=== PATIENT | male | born 1960 | race Asian ===

== ENCOUNTER → 2024-06-01 | Outpatient (CLI) | payer OTHER, SELFPAY ==
[2024-06-01 11:01] LABS: Prostate Specific Antigen 5.32 ng/mL (0-4.00)
== END | disposition home or self-care (01) ==
LOC: COPL 09:40
PROVIDERS: PCP Internal Medicine; Referring Provider Surgery; Visit Provider Surgery
DX: Z01.89 Encounter for other specified special examinations (principal)
CPT/HCPCS: 36415; 84153

== ENCOUNTER 2024-07-21 07:35 | Day surgery (SDC) | payer OTHER, SELFPAY ==
--- NOTE | 2024-07-19 06:41 | EKG_ITS ---
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
[2024-07-19 10:04] VITALS: BMI 28.5
[2024-07-19 10:29] LABS: Collection Type, Urine Clean Catch; Squamous Epithelial Cell,Urine 0 /hpf (0-5)
[2024-07-19 11:15] LABS: Bilirubin,Urine Negative (Negative); Blood,Urine Negative (Negative); Clarity,Urine Clear (Clear/Hazy); Color,Urine Colorless (Lt Yel-Yel); Glucose, Urine Negative (Negative); Ketones,Urine Negative (Negative); Leukocyte Esterase,Urine Negative (Negative); Nitrite,Urine Negative (Negative); Protein,Urine Negative (Neg - Trace); RBC,Urine < 1 /hpf (0-3); Specific Gravity,Urine 1.007 (1.001-1.035); Urobilinogen,Urine Negative mg/dL (0.0-1.0); WBC,Urine < 1 /hpf (0-5)
[2024-07-19 11:18] LABS: Alanine Aminotransferase 28 U/L (10-49); Albumin, Serum 4.8 gm/dL (3.4-4.8); Albumin/Globulin Ratio 1.5 (1.2-2.2); Alkaline Phosphatase 50 U/L (46-116); Anion Gap 8 (7-16); Aspartate Amino Transferase 21 U/L (0-34); BUN/Creatinine Ratio 13 Ratio (12-20); Bilirubin,Total 0.4 mg/dL (0.3-1.2); Blood Urea Nitrogen 15 mg/dL (9-23); Calcium 9.7 mg/dL (8.3-10.6); Calcium (Corrected) 9.7 mg/dL (8.5-10.1); Carbon Dioxide 28.1 mMol/L (20.0-31.0); Chloride 100 mMol/L (98-107); Creatinine (Component) 1.2 mg/dL (0.6-1.3); Estimated Creatinine Clearance 58.3 mL/min (>60); Globulin 3.1 gm/dL (2.3-3.5); Glucose 134 mg/dL (74-106); Osmolality,Calculated 274 (275-295); Potassium 3.6 mMol/L (3.4-5.1); Sodium 136 mMol/L (136-145); Total Protein 7.9 gm/dL (5.7-8.2); eGFR > 60 See Note
[2024-07-19 11:35] LABS: Basophils # (Auto) 0.1 Thou/mm3 (0.0-0.2); Basophils % (Auto) 2 % (0-2.5); Eosinophils # (Auto) 0.4 Thou/mm3 (0.0-0.5); Eosinophils % (Auto) 6 % (0-10); Hematocrit 45.7 % (41.0-53.0); Immature Granulocytes % (Auto) 0 % (0-0); Immature Granulocytes Auto 0.02 Thou/mm3 (0.00-0.00); Lymphocytes # (Auto) 1.9 Thou/mm3 (1.0-4.8); Lymphocytes % (Auto) 28 % (10-50); Mean Corpuscular HGB Conc 32.8 g/dl (31.0-37.0); Mean Corpuscular Hemoglobin 33.9 pg (25.0-35.0); Mean Corpuscular Volume 103 fL (80-100); Monocytes # (Auto) 0.8 Thou/mm3 (0.0-0.8); Monocytes % (Auto) 12 % (0-12); Neutrophils # (Auto) 3.5 Thou/mm3 (1.8-7.7); Neutrophils % (Auto) 52 % (37-80); Nucleated Red Blood Cell % 0 /100 WBC (0); Platelet Count 366 Thou/mm3 (140-440); RDW Standard Deviation 46.7 fL (35.1-43.9); Red Blood Count 4.42 Miln/mm3 (4.50-5.90); White Blood Count 6.7 Thou/mm3 (3.8-10.6)
--- NOTE | 2024-07-20 12:22 | ESHP_ITS ---
RE: ALFREDO VEGA : 1960 DATE OF ADMISSION: 07/21/2024 HISTORY OF PRESENT ILLNESS: The patient is a 64-year-old Wallisian male who was referred to me with a history of elevated PSA of 5.95. He has nocturia x5, fair urinary stream. There is no urinary burning. No history of gross hematuria. The patient had a history of hemorrhoidectomy in the past. The patient's serum creatinine is 1.4 and his PSA is 5.95. There is no history of diabetes mellitus. PAST MEDICAL HISTORY: The patient does have a history of hypertension. SOCIAL HISTORY: The patient has 3 children. ALLERGIES: NONE KNOWN. MEDICATIONS: The patient is on; 1. Statin medication. 2. Amlodipine. 3. Valsartan. 4. Chlorthalidone. PHYSICAL EXAMINATION: HEENT: Normal. NECK: Supple. LUNGS: Clear. CARDIOVASCULAR: Heart sounds are normal. ABDOMEN: Soft without any organomegaly. No guarding. No rigidity. EXTREMITIES: Normal. GENITOURINARY: Phallus is normal. Testes are down to scrotum. RECTAL: Moderately enlarged smooth prostate without any hard nodules. IMPRESSION: 1. Prostatism. The patient urinates 5 times at night. 2. Elevated PSA of 5.32. PLAN: Cystoscopy. The patient's PSA was 5.95. The repeat PSA is 5.32. The patient is now scheduled to have cystoscopy, transrectal prostatic ultrasound with ultrasound- guided prostatic needle biopsy. Planned procedure, risks and complications have been discussed with the patient. The patient has understood them and agreed to proceed. Thank you very much for your kind referral and for allowing me to see this patient. cc: Robert Bhakta MD DT: 11:56:36 TT: 12:20:00 Ref: [id number] - TID: [id number]
[2024-07-21 08:00] VITALS: BP 130/92; PULSE 101; RESP 16; TEMP 36.6; O2SAT 100; BMI 28.0
[2024-07-21] MEDS: RINGERS LACTATED 1000 ML 1,000 ML 20 ML IV (08:16)
[2024-07-21 10:53] VITALS: BP 98/76; PULSE 97; RESP 12; TEMP 36.1; O2SAT 94
--- NOTE | 2024-07-21 10:53 | SUR.PHASEII ---
1053: Pt. AAOx4, vitals stable, breathing unlabored, no complaint of pain or nausea, no dressing in place, no active bleed noted, report received from MD Maynard and Danny VINCENT.
[2024-07-21 10:58] VITALS: BP 110/74; PULSE 95; RESP 13; TEMP 36.2; O2SAT 92
[2024-07-21 11:03] VITALS: BP 123/85; PULSE 92; RESP 19; TEMP 36.2; O2SAT 94
[2024-07-21 11:09] VITALS: BP 117/84; PULSE 84; RESP 16; TEMP 36.5; O2SAT 94
[2024-07-21 11:24] VITALS: BP 134/93; PULSE 71; RESP 14; TEMP 36.5; O2SAT 98
--- NOTE | 2024-07-21 11:30 | SUR.PHASEII ---
1130: Pt. AAOx4, vitals stable, breathing unlabored, no complaint of pain or nausea, no dressing in place, pt. able to void hematuria, pt. tolerated sips of soda well, pt. ambulated to wheelchair with steady gait and no assist, no complications. Gave discharge instructions to the pt. and his ride, both verbalized understanding and had no further questions. Pt. left with all personal belongings.
--- NOTE | 2024-07-21 14:13 | ESOP_ITS ---
RE: ALFREDO VEGA : 1960 DATE OF OPERATION: 07/21/2024 PREOPERATIVE DIAGNOSES: Prostatism, prostatic obstruction, elevated PSA of 5.95. POSTOPERATIVE DIAGNOSES: Prostatism, prostatic obstruction, elevated PSA of 5.95. PROCEDURES PERFORMED: Cystoscopy, urethral dilatation, transrectal prostatic ultrasound with ultrasound-guided prostatic needle biopsy. ANESTHESIA: Monitored anesthesia by Dr. Maynard. INDICATION: The patient is a 64-year-old [place] male with nocturia 5 times with slowing urinary stream. His PSA has been up to 5.95. Rectally, he has a moderately enlarged smooth prostate without any hard nodules. He was now scheduled to have cystoscopy and transrectal prostatic ultrasound with ultrasound-guided prostatic needle biopsy. Planned procedure, risks and complications have been discussed with the patient. The patient understood them and agreed to proceed. DESCRIPTION OF PROCEDURE: After the patient was brought to the operating table under adequate monitored anesthesia given by Dr. Maynard, the patient was placed in dorsal lithotomy position. Parts were prepped and draped in the usual fashion. Cystoscopy was then carried out, which revealed adequate urethral meatus, normal-appearing urethra, moderately enlarged bilobed prostate. The residual urine 3 ounces, yellow and clear. There are no intravesical stones or tumors. Ureteral orifice was found to be normal in position and appearance. Scope was withdrawn. Urethra was dilated. The patient was then turned in the left lateral position. Transrectal prostatic ultrasound was carried out. Biopsies were obtained from both lobes using ultrasound guidance. Prostatic volume was measured at 23.6 cubic cm. The patient tolerated the entire procedure well and left the room in good condition. PLAN: We will wait for the biopsy report. DT: 11:09:20 TT: 14:12:00 Ref: [id number] - TID: [id number]
== END 2024-07-21 11:30 | disposition home or self-care (01) ==
PROVIDERS: Anesthesiology; PCP Internal Medicine; Referring Provider Surgery; Visit Provider Surgery
PROC: (CPT 55700; principal; 2024-07-21 10:00)
PROC: 0TJB8ZZ Inspection of Bladder, Via Natural or Artificial Opening Endoscopic (ICD-10-PCS; CPT 52000; 2024-07-21 10:00)
DX: N40.1 Benign prostatic hyperplasia with lower urinary tract symptoms (principal); R97.20 Elevated prostate specific antigen [PSA]; I10 Essential (primary) hypertension; Z01.810 Encounter for preprocedural cardiovascular examination
CPT/HCPCS: 52281; 55700; 36415; 76942; 80053; 81001; 85025; 87086; 93005; A4217; A4649; J0694; J2250; J2704; J3010; J7120

== ENCOUNTER 2024-10-17 08:45 | Inpatient (IN) | payer OTHER, SELFPAY ==
[2024-10-17] VITALS (7 sets, daily range): BP systolic 111–131; BP diastolic 76–84; PULSE 70–99; RESP 16–19; TEMP 36–37.1; O2SAT 95–99; BMI 27.4
--- NOTE | 2024-10-17 | XR_ITS ---
MRI abdomen, without contrast. MRCP Date and time of exam: October 17, 2024 1133 hours INDICATIONS: Onset abdominal pain this week, distended gallbladder, gallstones on CT abdomen pelvis October 17, 2024 Technique: Multiple axial and coronal images of the abdomen have been obtained with the Siemens 1.5T MRI scanner. Images obtained included T1 weighted transverse images, T2-weighted transverse images, T2-weighted transverse images fat-suppressed, T2 weighted haste fat suppressed transverse images, T1 weighted images, in and out of phase images, T2-weighted coronal images, breath hold, T2 weighted haze coronal images as well as T2 weighted coronal thick slab images, MRCP. Findings: No focal liver lesions Gallstones Gallbladder wall appears mildly thickened and edematous Common bile duct is enlarged 10 mm no definite stones Minimal dilatation pancreatic duct 3 mm No peripancreatic edema Benign bilateral renal cysts No splenomegaly No ascites IMPRESSION: Acute calculus cholecystitis Common bile duct is enlarged 10 mm with fairly abrupt termination of the distal common bile duct, recommend ERCP follow-up
--- NOTE | 2024-10-17 09:12 | XR_ITS ---
Examination: CT abdomen and pelvis without contrast. Coronal 3-D reconstructions. Sagittal 2-D reconstructions. Date and time of exam:October 17, 2024 0945 hours INDICATIONS: Generalized abdominal pain and vomiting today CTDI: vol (mGy): 8.66 DLP: (mGycm): 539 Technique: Axial images of the abdomen have been obtained, 3 mm slice thickness Intravenous contrast material has not been administered. Low dose protocols were performed. One or more of the following dose reduction techniques were used; automated exposure control, adjustment of the mA and/or KV according to patient size, use of iterative reconstruction technique. Findings: Severe fatty infiltration throughout the liver Distended gallbladder with tiny gallstone Common hepatic duct 16 mm No pancreatic or adrenal mass Small right renal cyst No hydronephrosis or ureteral calculi Aorta normal size Normal appendix No bowel obstruction AP prostate dimension 3.4 cm No bladder mass Prostate calcification Prominent osteopenia IMPRESSION: Cholelithiasis Distended gallbladder with enlarged common hepatic duct, recommend hepatobiliary sonography follow-up
--- NOTE | 2024-10-17 09:12 | PD.EDRME ---
Rapid Medical Screening Exam RME Arrival date/time: 10/17/24 08:45 64-year-old male presents to the emergency dept today for complaints of abdominal pain Chief Complaint: Abdominal Pain Vital signs: Vital Signs Temperature 98.7 F 10/17/24 08:56 Pulse Rate 91 10/17/24 08:56 Respiratory Rate 18 10/17/24 08:56 Blood Pressure 112/76 10/17/24 08:56 Pulse Oximetry (%) 97 10/17/24 08:56 Oxygen Delivery Method Room Air 10/17/24 08:56
[2024-10-17] MEDS: MG HYD/AL HYD/SIME (Maalox Reg) SUSP 30 ML UDC PO (09:34)
[2024-10-17] MEDS: FAMOTIDINE 20 MG TABLET PO (09:34)
[2024-10-17] MEDS: LIDOCAINE VISCOUS 2% 15 ML UDC PO (09:34)
[2024-10-17 09:54] LABS: Collection Type, Urine Clean Catch; Squamous Epithelial Cell,Urine 0 /hpf (0-5)
[2024-10-17 10:06] LABS: Amorphous Crystals,Urine Present (Absent); Bacteria,Urine Rare; Bilirubin,Urine Negative (Negative); Blood,Urine Negative (Negative); Clarity,Urine Clear (Clear/Hazy); Color,Urine Yellow (Lt Yel-Yel); Culture Indicated,Urine Not Indicated; Glucose, Urine Negative (Negative); Ketones,Urine Negative (Negative); Leukocyte Esterase,Urine Negative (Negative); Nitrite,Urine Negative (Negative); PH,Urine 6.5 (5.0-7.0); Protein,Urine Negative (Neg - Trace); RBC,Urine 6 /hpf (0-3); Specific Gravity,Urine 1.021 (1.001-1.035); Urobilinogen,Urine Negative mg/dL (0.0-1.0); WBC,Urine 3 /hpf (0-5)
[2024-10-17 10:26] LABS: Basophils # (Auto) 0.1 Thou/mm3 (0.0-0.2); Basophils % (Auto) 1 % (0-2.5); Eosinophils # (Auto) 0.2 Thou/mm3 (0.0-0.5); Eosinophils % (Auto) 2 % (0-10); Hematocrit 39.2 % (41.0-53.0); Hemoglobin 13.8 g/dL (13.5-16.0); Immature Granulocytes % (Auto) 0 % (0-0); Immature Granulocytes Auto 0.03 Thou/mm3 (0.00-0.00); Lymphocytes # (Auto) 1.5 Thou/mm3 (1.0-4.8); Lymphocytes % (Auto) 13 % (10-50); Mean Corpuscular HGB Conc 35.2 g/dl (31.0-37.0); Mean Corpuscular Hemoglobin 34.2 pg (25.0-35.0); Mean Corpuscular Volume 97 fL (80-100); Monocytes # (Auto) 1.3 Thou/mm3 (0.0-0.8); Monocytes % (Auto) 12 % (0-12); Neutrophils % (Auto) 72 % (37-80); Nucleated Red Blood Cell % 0 /100 WBC (0); Platelet Count 284 Thou/mm3 (140-440); Red Blood Count 4.03 Miln/mm3 (4.50-5.90); White Blood Count 11.1 Thou/mm3 (3.8-10.6)
[2024-10-17 10:50] LABS: Alanine Aminotransferase 305 U/L (10-49); Albumin, Serum 4.8 gm/dL (3.4-4.8); Albumin/Globulin Ratio 1.5 (1.2-2.2); Alkaline Phosphatase 155 U/L (46-116); Anion Gap 7 (7-16); Aspartate Amino Transferase 301 U/L (0-34); BUN/Creatinine Ratio 13 Ratio (12-20); Blood Urea Nitrogen 17 mg/dL (9-23); Calcium 10.1 mg/dL (8.3-10.6); Calcium (Corrected) 10.1 mg/dL (8.5-10.1); Carbon Dioxide 26.6 mMol/L (20.0-31.0); Chloride 101 mMol/L (98-107); Creatinine (Component) 1.3 mg/dL (0.6-1.3); Estimated Creatinine Clearance 52.8 mL/min (>60); Globulin 3.1 gm/dL (2.3-3.5); Glucose 131 mg/dL (74-106); Osmolality,Calculated 273 (275-295); Potassium 3.1 mMol/L (3.4-5.1); Sodium 135 mMol/L (136-145); Total Protein 7.9 gm/dL (5.7-8.2); eGFR > 60 See Note
--- NOTE | 2024-10-17 10:54 | XR_ITS ---
Examination: Abdomen sonogram, Limited Date and time of exam: October 17, 2024 1334 hours INDICATIONS: Epigastric pain abdominal pain beginning 3 weeks ago Technique: Real-time grier scale transabdominal sonographic images of the upper abdomen obtained. Findings: Multiple small gallstones Gallbladder wall 0.3 cm no edema Common bile duct 0.2 cm Pancreatic head 3.1 cm Liver 16.9 cm fatty infiltration no focal liver lesions Normal hepatopedal portal venous flow Patent IVC IMPRESSION: Cholelithiasis, negative for cholecystitis Fatty liver
[2024-10-17 10:56] LABS: Lipase 2400 U/L (12-53)
--- NOTE | 2024-10-17 14:51 | PD.EDABDPN ---
ED Abdominal Pain RME/HPI General Chief Complaint: Abdominal Pain Stated complaint: ABD. PAIN SINCE LAST NIGHT Arrival date/time: 10/17/24 08:45 RME / HPI RME / HPI narrative: 10/17/24 08:45 64-year-old male presents to the emergency dept today for complaints of abdominal pain DR. EDGAR MAIN ED EVALUATION: 64 year old male with past medical history significant for hypertension presents to the Emergency Department with complaint of abdominal pain today. He states he is not a regular drinker, he drank 5 beers Wednesday night at an event. No other symptoms reported at this time. Related Data Home Medications ?Medication ?Instructions ?Recorded ?Confirmed amlodipine 5 mg-valsartan 320 mg 1 tab PO DAILY 02/09/23 07/21/24 tablet fenofibrate 160 mg tablet 160 mg PO DAILY 02/09/23 07/21/24 simvastatin 40 mg tablet 40 mg PO DAILY 02/09/23 07/21/24 chlorthalidone 25 mg tablet 25 mg PO DAILY 07/19/24 07/21/24 ciprofloxacin HCl 500 mg tablet 500 mg PO Q12H 07/19/24 07/21/24 Allergies Allergy/AdvReac Type Severity Reaction Status Date / Time No Known Allergies Allergy Verified 10/17/24 08:49 Review of Systems Review of Systems Systems Reviewed: All systems reviewed, normal except as documented Narrative Review of Systems: Constitutional: DENIES: fevers; Eyes: DENIES: loss of vision; Head/Ear/Nose: DENIES: loss of hearing. Throat: DENIES: dysphagia. Cardiovascular: DENIES: chest pain, dyspnea, or syncope. Respiratory: DENIES: shortness of breath; Gastrointestinal: POSITIVES: abdominal pain; DENIES: rectal bleeding or melena. Genitourinary: DENIES: dysuria (painful or difficult urination); Musculoskeletal: DENIES: arthralgia (pain in a joint); Skin: DENIES: rash; Neurological: DENIES: loss of function or movement; Psychiatric: DENIES: recent major life stressor, emotional problem, illicit drug use or abuse; Endocrinology: DENIES: weight change,; Hematologic/Lymphatic: DENIES: abnormal bruising. Allergic/Immunologic: DENIES: urticaria (hives). Past Medical History Past Medical History CARDIAC: Positive Cardiac Disorders, Hypercholesterolemia and Hypertension GASTROINTESTINAL: Positive Gastrointestinal Disorders and Obesity GENITOURINARY: Positive Genitourinary Disorders and Benign Prostatic Hyperplasia OTHER HISTORY: Positive Hospitalization (surgery) Family History FAMILY HISTORY: Positive Family Cardiac Disorders Social History SMOKING STATUS: Never smoker SUBSTANCE USE: does not use ALCOHOL: Never ED Exam Narrative Physical exam: Physical Exam: General: The vital signs were reviewed. The patient is non-toxic, in no apparent distress and appears healthy with a patent airway, no respiratory distress and has no apparent circulatory problems. Head & Scalp: Normocephalic, atraumatic. Face: Appears normal and is without lesions, deformity. Ears: Left external pinna appears normal. Right external pinna appears normal. Eyes: The sclera is anicteric. No obvious photophobia. The Left and Right Orbit/Lid/Conjunctiva appears normal without swelling, discoloration or injection. Nose: The nose is without deformity, discharge or tenderness; Throat: Appears normal. The mucous membranes are pink and moist without exudates, redness or mass seen. The tongue appears normal. Neck: The neck is supple and no apparent mass or adenopathy. Chest: The chest wall is normal in size and symmetry and has no chest wall tenderness or crepitus. The patient displays normal ventilator effort without retractions, accessory muscle use and has adequate air movement bilaterally with no wheezes and no rales. Cardiovascular: Regular rate and rhythm; No murmurs, rubs, or gallops; Gastrointestinal: The abdomen appears protuberant and distended at 1450 hrs. his abdomen is minimally tender No obvious hernias or mass. The abdomen is moderately-distended, no guarding and no rebound tenderness. Bowel sounds are present and normal sounding. No CVA tenderness. Genitourinary: Back/Spine: Extremities/Musculoskeletal/lymphatic: The bilateral upper and lower extremities are warm. There is no evidence of arterial insufficiency. There is no evidence of venous insufficiency/edema. The patient spontaneously moves bilateral upper and lower extremities with no pain and no limitation of movement. There is no apparent, injury or trauma. Skin: The skin is warm, dry and intact. No rashes. No petechia. No purpura. No abnormal bruising. The color is appropriate with no cyanosis. Mental status/Psychiatric: Mental status is appropriate for age. The patient has no apparent delusions, visual hallucinations, no apparent audible hallucinations. The patient has no apparent suicidal thoughts/ideation and no apparent homicidal thoughts/ideation. Neurological: The patient is awake, alert, interactive, cordial, cooperative and is oriented to name and situation. The patient follows commands and answers historical question with no impairment. There is no visual disturbance apparent. The pupils are equal and reactive bilaterally with normal eye movements and no diplopia The bilateral upper and lower extremities have normal strength, normal range of motion and normal functioning. The gait, station and balance appear to be baseline with no acute change Course Quality Measures none Orders Category Date Time Status MRI Screening NOW Care 10/17/24 10:[address] abdomen pelvis wo con Stat Exams 10/17/24 09:12 Completed MR MRCP Stat Exams 10/17/24 Completed US gall bladder Stat Exams 10/17/24 10:54 Completed CBC Stat Lab 10/17/24 10:01 Completed Comprehensive Metabolic Panel Stat Lab 10/17/24 10:01 Completed Lipase Stat Lab 10/17/24 10:01 Completed UA, C/S IF [Urinalysis, C/S if Indicated] Stat Lab 10/17/24 09:22 Completed Famotidine [Pepcid] Med 10/17/24 09:12 Discontinued 20 mg PO X1 ONE Lidocaine 2% Viscous [Xylocaine 2% Viscous] Med 10/17/24 09:12 Discontinued 15 ml PO X1 ONE Sodium Chloride 0.9% 1000 ml [Ns] 1,000 ml Med 10/17/24 14:57 Discontinued IV 150 mls/hr Sodium Chloride 0.9% 1000 ml [Ns] 1,000 ml Med 10/17/24 14:57 Discontinued IV 999 mls/hr mg Hyd/Al Hyd/Martha Susp [Maalox Susp] Med 10/17/24 09:12 Discontinued 30 ml PO X1 ONE Vital Signs Vital signs: Vital Signs Temperature 98.7 F 10/17/24 08:56 Pulse Rate 91 10/17/24 08:56 Respiratory Rate 18 10/17/24 08:56 Blood Pressure 112/76 10/17/24 08:56 Pulse Oximetry (%) 97 10/17/24 08:56 Oxygen Delivery Method Room Air 10/17/24 08:56 Abdominal Pain MDM MDM Narrative MDM Narrative:: I, Alesha Singleton, am scribing for and in the presence of Dr. Edgar. Patient presents with new onset of abdominal pain drank 5 beers and now has a lipase of 2400 consistent with acute pancreatitis. He also has an elevated bilirubin from baseline which prompted an MRCP to be done which reveals acute calculus cholecystitis but no choledocholithiasis was found. Common bile duct is 10 mm. There is an abrupt termination of the distal common bile duct of uncertain significance. There is no ascites and no splenomegaly seen White count 11.1 hemoglobin is 13.8 sodium 135 potassium 3.1 chloride 101 CO2 26.6 BUN 17 creatinine 1.3 total bilirubin is 2.0 lipase is 2400. Urinalysis is unremarkable. Ultrasound reveals cholelithiasis. But no cholecystitis. CT of the abdomen reveals distended gallbladder with enlarged common bile duct. Because of the enlarged common bile duct and no choledocholithiasis or obvious acute cholecystitis and MRCP patient needs to be admitted or transferred somewhere I consulted our GI specialist Dr. Alcantar who felt the patient did not need ERCP as there is no choledocholithiasis and that he can be cooled down and then have his gallbladder removed and they can do an intraoperative cholangiogram and if positive they can do an ERCP postoperatively. I ran this by Dr. Andersen our surgeon on-call who said he agreed with that plan and will be consulting. Then call the hospitalist spoke with Dr. Vasquez and acute cholecystitis. And again no evidence of choledocholithiasis on MRCP Patient data External records reviewed:: [facility] previous records (Reviewed operative note by Dr. Oreilly dated 07/21/24.) Clinical information provided by:: patient Social determinants that could affect healthcare access:: none Patient has the following chronic illnesses:: Hypertension How is presenting disease/condition affected by chronic disease/condition?: uneffected by Evaluation data The following diagnostics were reviewed and interpreted by me:: lab results and radiology exam(s) Lab and/or radiology exams considered but not ordered:: none Interpretation Summary: Procedure(s): US gall bladder Accession Number(s): [id number] cc: Montez (ROSALIE),Elias WIGGINS; Ted Ledesma MD; Robert Bhakta MD~ Examination: Abdomen sonogram, Limited Date and time of exam: October 17, 2024 1334 hours INDICATIONS: Epigastric pain abdominal pain beginning 3 weeks ago Technique: Real-time grier scale transabdominal sonographic images of the upper abdomen obtained. Findings: Multiple small gallstones Gallbladder wall 0.3 cm no edema Common bile duct 0.2 cm Pancreatic head 3.1 cm Liver 16.9 cm fatty infiltration no focal liver lesions Normal hepatopedal portal venous flow Patent IVC IMPRESSION: Cholelithiasis, negative for cholecystitis Fatty liver Dictated By: Ted Ledesma MD Procedure(s): CT abdomen pelvis [facility] Accession Number(s): [id number] cc: Montez (ROSALIE),Elias WIGGINS; Ted Ledesma MD; Robert Bhakta MD~ Examination: CT abdomen and pelvis without contrast. Coronal 3-D reconstructions. Sagittal 2-D reconstructions. Date and time of exam:October 17, 2024 0945 hours INDICATIONS: Generalized abdominal pain and vomiting today CTDI: vol (mGy): 8.66 DLP: (mGycm): 539 Technique: Axial images of the abdomen have been obtained, 3 mm slice thickness Intravenous contrast material has not been administered. Low dose protocols were performed. One or more of the following dose reduction techniques were used; automated exposure control, adjustment of the mA and/or KV according to patient size, use of iterative reconstruction technique. Findings: Severe fatty infiltration throughout the liver Distended gallbladder with tiny gallstone Common hepatic duct 16 mm No pancreatic or adrenal mass Small right renal cyst No hydronephrosis or ureteral calculi Aorta normal size Normal appendix No bowel obstruction AP prostate dimension 3.4 cm No bladder mass Prostate calcification Prominent osteopenia IMPRESSION: Cholelithiasis Distended gallbladder with enlarged common hepatic duct, recommend hepatobiliary sonography follow-up Dictated By: Ted Ledesma MD Procedure(s): MR MRCP Accession Number(s): [id number] cc: Montez (ROSALIE),Elias WIGGINS; Ted Ledesma MD; Robert Bhakta MD~ MRI abdomen, without contrast. MRCP Date and time of exam: October 17, 2024 1133 hours INDICATIONS: Onset abdominal pain this week, distended gallbladder, gallstones on CT abdomen pelvis October 17, 2024 Technique: Multiple axial and coronal images of the abdomen have been obtained with the Siemens 1.5T MRI scanner. Images obtained included T1 weighted transverse images, T2-weighted transverse images, T2-weighted transverse images fat-suppressed, T2 weighted haste fat suppressed transverse images, T1 weighted images, in and out of phase images, T2-weighted coronal images, breath hold, T2 weighted haze coronal images as well as T2 weighted coronal thick slab images, MRCP. Findings: No focal liver lesions Gallstones Gallbladder wall appears mildly thickened and edematous Common bile duct is enlarged 10 mm no definite stones Minimal dilatation pancreatic duct 3 mm No peripancreatic edema Benign bilateral renal cysts No splenomegaly No ascites IMPRESSION: Acute calculus cholecystitis Common bile duct is enlarged 10 mm with fairly abrupt termination of the distal common bile duct, recommend ERCP follow-up Dictated By: Ted Ledesma MD Medications / Prescriptions Medications or Prescriptions considered but not ordered:: none Medication administrations:: Medication Administration History Acetaminophen (Acetaminophen 325 Mg Tablet) 650 mg PO Q6H PRN PRN Reason: Pain (1-3) & Fever >100.4 Stop: 11/16/24 15:52 Hydrocodone Bitart/Acetaminophen (Hydrocodone/Apap 5/325 Tablet) 1 tab PO Q4HR PRN PRN Reason: PAIN SCALE 4-6 (Moderate Stop: 10/22/24 15:52 Al Hydrox/Mg Hydrox/Simethicone (Mg Hyd/Al Hyd/Martha (Maalox Reg) Susp 30 Ml Udc) 30 ml PO Q6H PRN PRN Reason: Indigestion Stop: 11/16/24 15:52 Heparin Sodium (Porcine) (Heparin Sod Inj 5000 Unit/Ml Vial) 5,000 unit SC Q12H ROMERO Stop: 10/31/24 21:59 Lactated Ringer's (Lactated Ringers) 1,000 mls @ 200 mls/hr IV .Q5H ROMERO Stop: 11/16/24 16:59 Piperacillin/Tazobactam/Dextrose (Zosyn) 3.375 gm in 50 mls @ 12.5 mls/hr IV Q8HR ROMERO; Protocol Stop: 10/24/24 21:59 Piperacillin/Tazobactam/Dextrose (Zosyn) 3.375 gm in 50 mls @ 100 mls/hr IV X1 ONE Stop: 10/17/24 18:29 Morphine Sulfate (Morphine Sulf Inj 10 Mg/Ml Vial) 2 mg IVP Q4H PRN PRN Reason: PAIN SCALE 7-10 (Severe Stop: 10/22/24 15:52 Ondansetron HCl (Ondansetron Inj 2 Mg/Ml Inj 2 Ml) 4 mg IV Q6H PRN; Protocol PRN Reason: NAUSEA OR VOMITING Stop: 11/16/24 15:52 Pantoprazole Sodium (Pantoprazole Inj 40 Mg Vial) 40 mg IVP QDAY ROMERO Stop: 11/17/24 08:59 Discontinued Medications Al Hydrox/Mg Hydrox/Simethicone (Mg Hyd/Al Hyd/Martha (Maalox Reg) Susp 30 Ml Udc) 30 ml PO X1 ONE Stop: 10/17/24 09:13 Last Admin: 10/17/24 09:34 Dose: 30 ml Documented By: LAURA Famotidine (Famotidine 20 Mg Tablet) 20 mg PO X1 ONE Stop: 10/17/24 09:13 Last Admin: 10/17/24 09:34 Dose: 20 mg Documented By: LAURA Sodium Chloride (Ns) 1,000 mls @ 150 mls/hr IV .Q6H40M ONE Stop: 10/17/24 21:36 Sodium Chloride (Ns) 1,000 mls @ 999 mls/hr IV .Q1H1M ONE Stop: 10/17/24 15:57 Lactated Ringer's (Lactated Ringers) 1,000 mls @ 999 mls/hr IV .Q1H1M ONE Stop: 10/17/24 17:00 Last Admin: 10/17/24 16:55 Dose: 999 mls/hr Documented By: TIERRA Lidocaine HCl (Lidocaine Viscous 2% 15 Ml Udc) 15 ml PO X1 ONE Stop: 10/17/24 09:13 Last Admin: 10/17/24 09:34 Dose: 15 ml Documented By: LAURA Potassium Chloride (Potassium Chloride 20 Meq Tabcr) 40 meq PO X1 ONE Stop: 10/17/24 16:09 Last Admin: 10/17/24 16:55 Dose: 40 meq Documented By: TIERRA see above Consultations Consultation(s) initiated? (list below): Yes Consultation #1 (Physician, Specialty, Details): Discussed test HPI, PMHx, lab, radiology results and/or management with Dr. Alcantar. Will consult an admission to the hospitalist. Time: 14:51 Consultation #2 (Physician, Specialty, Details): Discussed test HPI, PMHx, lab, radiology results and/or management with Dr. Kamara. Will consult an admission to the hospitalist. Time: 14:55 Consultation #3 (Physician, Specialty, Details): Discussed test HPI, PMHx, lab, radiology results and/or management with resident working with hospitalist. Will admit for further evaluation and management. Accepts patient for admission. Time: 14:58 Diagnosis Differential diagnosis abdominal pain: abdominal pain, gastroenteritis and pancreatitis Most likely diagnosis given after review of the tests above:: Acute pancreatitis Alcohol use Elevated transaminase level Acute calculous cholecystitis Admission Indicated Admission indicated?: indicated Admission Request Was there a request for admission?: Yes Admission Attestation Admission request attestation: Discussed case with [] from Hospitalist service regarding admission. Discussed patients ED course, exam findings, labs, and radiology results. The Hospitalist [agrees,declines] to accept the patient for admission. Disposition Plan Disposition Plan: Admit Discharge Plan Plan Patient Disposition: Admit Acute Care w/in Hospital Disposition Comment: Hospitalist admit Dr. Alcantar and Dr. Kamara to consult Problem List Clinical Impression: Acute pancreatitis, Alcohol use, Elevated transaminase level, Acute calculous cholecystitis
--- NOTE | 2024-10-17 16:08 | PD.RESHP ---
Documentation for date of: 10/17/24 HPI History of Present Illness Chief complaint: Abdominal pain History of present illness: Mr. Carmona is a 64-year-old male with past medical history of hypertension, hyperlipidemia and benign prostate hypertrophy who presented to [facility] emergency department from home on 10/17/2024 with a chief complaint of abdominal pain. Patient reported that the pain started overnight, describes the pain as burning in the middle of abdominal, nonradiating associated with some nausea, denies any vomiting. Patient reports that he had 6-7 beers over the weekend otherwise has been normal. Patient tried taking [id number] PPI for pain relief yesterday but it did not improve and he decided to come to the emergency department for further evaluation. Patient denies binge drinking otherwise, reports that he drinks occasionally, denies drinking daily. Patient otherwise has no complaints, follows up regularly outpatient with primary care physician, denies any chest pain, palpitations, syncope, dysuria or passing out. Patient did report that he did fall down over the weekend under the influence of alcohol. Patient otherwise has no current complaints. ED Course: ED Vitals: On presentation blood pressure 112/76, heart rate 91, respirate rate 18, temp 98.7, O2 sat 97 on room air ED Labs: Emergency department labs significant for WBC 11.1, RBC 4.03, hematocrit 39.2, sodium 135, potassium 3.1, glucose 131, osmolality 273, total bilirubin 2.0, AST 301, ALT 305, alkaline phosphatase 155, lipase 2400. Urine analysis shows urine RBC 6, amorphous crystals present, rare bacteria ED Imaging:MRCP in the emergency department shows acute calculus cholecystitis, CBD is enlarged 10 mm with fairly abrupt termination of distal common bile duct. CT abdomen pelvis shows cholelithiasis, distended gallbladder with enlarged common hepatic duct and gallbladder ultrasound shows cholelithiasis negative for cholecystitis and fatty liver ED Treatment:Patient was given lidocaine p.o. 15 mL x 1, Maalox x 1, famotidine 20 mg p.o. x 1 in the emergency department Patient admitted to the hospital for further workup for gallstone pancreatitis. Review of Systems Review of Systems Narrative Review of Systems: ROS: -CONSTITUTIONAL: Denies weight loss, fever and chills. -HEENT: Denies changes in vision and hearing. -RESPIRATORY: Denies SOB and cough. -CV: Denies palpitations and Chest Pain. -GI: Positive for abdominal pain, nausea, denies vomiting,constipation and diarrhea. -: Denies dysuria and urinary frequency. -MSK: Denies myalgia and joint pain. -SKIN: Denies rash and pruritus. -NEUROLOGICAL: Denies headache and syncope. -PSYCHIATRIC: Denies recent changes in mood. Denies anxiety and depression. Past Medical History Past Medical History Comments PMH COMMENT: PMH: Positive for hypertension, hyperlipidemia and benign prostate hypertrophy PSHx: Positive for prostate surgery, colonoscopy Allergies: No known drug and food allergies Social history: -Smoking: Reports smoking half a cigarette per day for about a year in the past -Alcohol Use: Occasional alcohol use, recent episode of binge drinking over the weekend -Illicit Drug Use: Denies -Occupation: Used to work in the [employer], retired currently -Martial Status: , at bedside Family History: Positive for family history of cardiac disease in siblings Exam Vital Signs Temp Pulse Resp BP Pulse Ox O2 Del Method 98.4 F 93 16 131/83 H 99 Room Air 10/17/24 14:13 10/17/24 14:13 10/17/24 14:13 10/17/24 14:13 10/17/24 14:13 10/17/24 14:13 Narrative Exam Physical Exam General: Awake and in no acute distress. Conversational and non-toxic appearing. HEENT: Normocephalic, atraumatic, mucous membranes moist. Heart: Regular rate and rhythm, no murmurs. Lungs: Clear to auscultation with no wheezing or crackles. Abdomen: Soft, nondistended, generalized tenderness, positive bowel sounds. ?No guarding or rebound tenderness. Neurologic: Alert and oriented x3, no gross neurological deficit, and patient able to move all 4 extremities. Extremities: No edema. Skin: No rash or ecchymoses. Results: Labs 10/18/24 05:13 10/18/24 05:13 Labs: Short CBC 10/17/24 Range/Units 10:01 WBC 11.1 H (3.8-10.6) Thou/mm3 Hgb 13.8 (13.5-16.0) g/dL Hct 39.2 L (41.0-53.0) % Plt Count 284 (140-440) Thou/mm3 BMP 10/17/24 10:01 Sodium 135 L Potassium 3.1 L Chloride 101 Carbon Dioxide 26.6 BUN 17 Creatinine 1.3 Glucose 131 H Calcium 10.1 Liver Function 10/17/24 Range/Units 10:01 Total Bilirubin 2.0 H (0.3-1.2) mg/dL AST 301 H (0-34) U/L ALT 305 H (10-49) U/L Alkaline Phosphatase 155 H (46-116) U/L Albumin 4.8 (3.4-4.8) gm/dL Urine 10/17/24 Range/Units 09:22 Urine Color Yellow (Lt Yel-Yel) Urine Clarity Clear (Clear/Hazy) Urine pH 6.5 (5.0-7.0) Ur Specific [place] 1.021 (1.001-1.035) Urine Protein Negative (Neg - Trace) Urine Glucose (UA) Negative (Negative) Quality Measures Quality Measures none Advance care planning discussed with:: patient Medications Home Medications and Allergies Home Medications ?Medication ?Instructions ?Recorded ?Confirmed ?Type amlodipine 5 mg-valsartan 320 mg 1 tab PO DAILY 02/09/23 10/17/24 History tablet fenofibrate 160 mg tablet 160 mg PO DAILY 02/09/23 10/17/24 History simvastatin 40 mg tablet 40 mg PO DAILY 02/09/23 10/17/24 History chlorthalidone 25 mg tablet 25 mg PO DAILY 07/19/24 10/17/24 History docusate sodium 100 mg capsule 100 mg PO BID 10/17/24 10/17/24 History doxazosin 4 mg tablet 4 mg PO 1XD 10/17/24 10/17/24 History Allergies Allergy/AdvReac Type Severity Reaction Status Date / Time No Known Allergies Allergy Verified 10/17/24 08:49 Visit Medications Acetaminophen (Acetaminophen 325 Mg Tablet) 650 mg PO Q6H PRN PRN Reason: Pain (1-3) & Fever >100.4 Stop: 11/16/24 15:52 Hydrocodone Bitart/Acetaminophen (Hydrocodone/Apap 5/325 Tablet) 1 tab PO Q4HR PRN PRN Reason: PAIN SCALE 4-6 (Moderate Stop: 10/22/24 15:52 Al Hydrox/Mg Hydrox/Simethicone (Mg Hyd/Al Hyd/Martha (Maalox Reg) Susp 30 Ml Udc) 30 ml PO Q6H PRN PRN Reason: Indigestion Stop: 11/16/24 15:52 Heparin Sodium (Porcine) (Heparin Sod Inj 5000 Unit/Ml Vial) 5,000 unit SC Q12H ROMERO Stop: 10/31/24 21:59 Sodium Chloride (Ns) 1,000 mls @ 150 mls/hr IV .Q6H40M ONE Stop: 10/17/24 21:36 Lactated Ringer's (Lactated Ringers) 1,000 mls @ 999 mls/hr IV .Q1H1M ONE Stop: 10/17/24 17:00 Lactated Ringer's (Lactated Ringers) 1,000 mls @ 200 mls/hr IV .Q5H ROMERO Stop: 11/16/24 16:59 Piperacillin/Tazobactam/Dextrose (Zosyn) 50 mls @ 100 mls/hr IV Q6HR ROMERO Stop: 10/24/24 16:01 Morphine Sulfate (Morphine Sulf Inj 10 Mg/Ml Vial) 2 mg IVP Q4H PRN PRN Reason: PAIN SCALE 7-10 (Severe Stop: 10/22/24 15:52 Ondansetron HCl (Ondansetron Inj 2 Mg/Ml Inj 2 Ml) 4 mg IV Q6H PRN; Protocol PRN Reason: NAUSEA OR VOMITING Stop: 11/16/24 15:52 Pantoprazole Sodium (Pantoprazole Inj 40 Mg Vial) 40 mg IVP QDAY ROMERO Stop: 11/17/24 08:59 Discontinued Medications Al Hydrox/Mg Hydrox/Simethicone (Mg Hyd/Al Hyd/Martha (Maalox Reg) Susp 30 Ml Udc) 30 ml PO X1 ONE Stop: 10/17/24 09:13 Last Admin: 10/17/24 09:34 Dose: 30 ml Famotidine (Famotidine 20 Mg Tablet) 20 mg PO X1 ONE Stop: 10/17/24 09:13 Last Admin: 10/17/24 09:34 Dose: 20 mg Sodium Chloride (Ns) 1,000 mls @ 999 mls/hr IV .Q1H1M ONE Stop: 10/17/24 15:57 Lidocaine HCl (Lidocaine Viscous 2% 15 Ml Udc) 15 ml PO X1 ONE Stop: 10/17/24 09:13 Last Admin: 10/17/24 09:34 Dose: 15 ml Assessment & Plan Plan Assessment and plan: Summary: Mr. Carmona is a 64-year-old male with past medical history of hypertension, hyperlipidemia and benign prostate hypertrophy who presented to [facility] emergency department from home on 10/17/2024 with a chief complaint of abdominal pain. Patient admitted for further management of gallstone pancreatitis. #Acute pancreatitis #Acute calculus cholecystitis #Leukocytosis #Transaminitis, elevated alk phos, hyperbilirubinemia Etiology: Cholelithiasis most likely, possible causes of alcohol use, hyperlipidemia Patient has significant abdominal pain, lipase elevated 2400. No evidence of pancreatitis on CTAP. MRCP shows acute calculus cholecystitis, enlarged CBD with abrupt termination of distal common bile duct. Ultrasound shows cholelithiasis and fatty liver. Patient was given lidocaine p.o. 15 mL x 1, Maalox x 1, famotidine 20 mg p.o. x 1 in the emergency department. MRCP findings discussed with general surgeon, general surgery recommends strict n.p.o., will obtain cholangiogram during surgery. Plan: - IV Zosyn (10/17- - 1 L LR bolus followed by maintenance LR 200 cc/h - IV morphine as needed for pain - Strict n.p.o. per general surgery - General Surgery consulted, appreciate recommendations - Gastroenterology consulted, appreciate recommendations - Maalox as needed, daily IV Protonix - Follow lipid panel #Electrolyte abnormality #Hypokalemia #Mild hyponatremia - Currently on IV fluids, will correct and replace electrolytes as needed #Hypertension Patient on hydrochlorothiazide, amlodipine and valsartan combination at home, pending med reconciliation Blood pressure soft, will hold antihypertensives #Hyperlipidemia Patient has transaminitis, will hold statins DVT prophylaxis: Heparin every 12 GI prophylaxis: IV Protonix Diet: Strict n.p.o. Lines: Peripheral IV Code status: Full code Case discussed with Attending Dr. Vasquez and Dr. Puckett PGY3. Salazar Bee PGY1 Disclaimer: This note was dictated by speech recognition. Minor errors in special education coordinator may be present due to voice recognition software. I discussed with and supervised the editorial intern physician who took care of this patient. I personally saw and examined the patient and discussed the assessment and plan with the entire medicine team, including my attending Dr. Christina SEGOVIA. I agree with the assessment and plan as documented above. Mr. Gaetano Carmona is a 64-year-old male with a past medical history of hypertension, hyperlipidemia, benign prostatic hypertrophy who presented to the ED on 10/17/2024 due to chief complaint of 1 day duration of abdominal pain. Patient and his reported that he recently drank 6-7 beers at a green party 3 days ago. On the night prior to presentation he noted diffuse, constant, unrelenting, nonradiating abdominal pain which he characterized as burning in nature. He attempted to take PPI to relieve his symptoms which did not help. Presenting to the ED further workup showed a trace, bili base of 2400. An MRCP was performed which showed acute calculus cholecystitis. It also revealed a enlarged with a abrupt termination of the distal common bile duct. CT A/P revealed cholelithiasis with a distended gallbladder and enlarged common hepatic duct and gallbladder ultrasound showed cholelithiasis. Patient was admitted for treatment and management of acute gallstone pancreatitis. A/P #Gallstone Pancreatitis -Aggressive IVF resusitation, LR at 200 cc/hr - EtOH Cessation counseling as appropriate - lipid panel negative hyper-triglyceridemia - NPO per gen surgery recommendations - IVF maintenance while NPO - Morphine IV PRN pain - Ondansetron PRN nausea/vomiting Garret Puckett M.D. Internal Medicine PGY-3 Attending Provider Attestation/Addendum I have examined the patient, reviewed labs and imaging findings, discussed the case with the resident(s), and reviewed entered orders. I agree with the plan of care as outlined in this note, with these additional summaries/recommendations: Patient seen at bedside. She presented with abdominal pain. Labs notable for hyperbilirubinemia with T. bili 2.0, AST 301, ALT 305, ALP 155. MRCP showed acute calculus cholecystitis with enlarged common bile duct 10 mm with fairly abrupt termination of distal common bile duct. Imaging was also consistent with acute pancreatitis. Patient diagnosed with acute cholecystitis and pancreatitis. Suspect pancreatitis secondary to passed stone and case discussed with gastroenterology and general surgery. Given that no stone was identified on MRCP patient has likely already passed the stone. We will treat pancreatitis with IV fluids, pain management, and NPO. Once more improved patient will go for cholecystectomy and intraoperative Georgie angiogram. Start IV antibiotic. All questions answered to satisfaction. Dr. Christina MD
--- NOTE | 2024-10-17 16:34 | PC.SS ---
Initial assessment: this is 64 year old male pending hospital admission for abdominal pain. Patient was able to confirm demographic information. Patient lives at home with his . Patient assigned his , Lisa as his emergency contact. Patient reports being independent with ADL's. Patient denies use of home DME. Patient is followed by Dr. Bhakta for primary care. Pharmacy of choice is [facility] on [facility]. The patient would like to return home upon discharge and informs family is able to transport home. No needs identified at this time. D/c plan: Home Next of kin: Lisa
[2024-10-17] MEDS: RINGERS LACTATED 1000 ML 1,000 ML 999 ML IV (16:55)
[2024-10-17] MEDS: POTASSIUM CHLORIDE 20 mEq TABCR 40 MEQ PO (16:55)
[2024-10-17 16:58] LABS: Cardiac Risk Estimate 2.6 RATIO (4.0-6.7); Cholesterol 145 mg/dL (132-200); HDL Cholesterol 56 mg/dL (40-60); LDL Cholesterol,Calculated 67 mg/dL (0-130); Triglycerides 110 mg/dL (30-150)
--- NOTE | 2024-10-17 17:51 | PC.NURSE ---
REPORT CALLED TO [facility] ON [facility].
--- NOTE | 2024-10-17 17:59 | PC.NURSE ---
PT TRANSPORTED TO ROOM #355 VIA GURNEY ACCOMPANIED BY [facility] .
[2024-10-17] MEDS: RINGERS LACTATED 1000 ML 1,000 ML 200 ML IV (18:16)
[2024-10-17] MEDS: PIPER/TAZO 3.375 GM PREMIX 3.375 GM/50 ML BAG IV ×2 (18:48→21:41)
--- NOTE | 2024-10-17 18:49 | PC.NURSE ---
Notified Dr. Batres of patients condition. Patient anxious, flushed 02 sats 83% on 4 liters nc. Notified Daughter Trudy per patient request. On oximask at 7liters.
--- NOTE | 2024-10-17 19:54 | PD.SURCONS ---
HPI Consult details Consult date: 10/17/24 Reason for consultation narrative: gallstone pancreatitis History of present illness: 64-year-old male with history of hypertension, BPH and hypercholesterolemia presented to the emergency department with acute onset of abdominal pain. His pain started 2 days ago and epigastric and right upper quadrant radiating to his back. He has had nausea with dry heaves but denies vomiting, fever, chills, jaundice or discoloration of urine or stool. He denies having similar symptoms in the past with no recent history of trauma. He had mildly elevated WBC. He had moderate elevation of liver enzymes and significant elevation of lipase. CT scan and abdominal ultrasound revealed gallstones with distended gallbladder. MRCP did not show CBD stone, dilated CBD with distal tapering. Patient was started on IV fluids and admitted for further management. Review of Systems Constitutional Constitutional: Denies chills and Denies fever(s) Cardiovascular Cardiovascular: Denies chest pain Respiratory Respiratory: Denies cough Gastrointestinal Gastrointestinal: Reports abdominal pain, Reports nausea and Denies vomiting Genitourinary Genitourinary: Denies difficulty urinating Hematologic/Lymphatic Hematologic/Lymphatic: Denies easy bleeding and Denies easy bruising Past Medical History Surgical History OTHER SURGICAL HX: Hemorrhoidectomy, cystoscopy Social History SMOKING STATUS: Former smoker SUBSTANCE USE: does not use ALCOHOL: Current Meds Home Medications and Allergies Home Medications ?Medication ?Instructions ?Recorded ?Confirmed ?Type amlodipine 5 mg-valsartan 320 mg 1 tab PO DAILY 02/09/23 10/17/24 History tablet fenofibrate 160 mg tablet 160 mg PO DAILY 02/09/23 10/17/24 History simvastatin 40 mg tablet 40 mg PO DAILY 02/09/23 10/17/24 History chlorthalidone 25 mg tablet 25 mg PO DAILY 07/19/24 10/17/24 History docusate sodium 100 mg capsule 100 mg PO BID 10/17/24 10/17/24 History doxazosin 4 mg tablet 4 mg PO 1XD 10/17/24 10/17/24 History Allergies Allergy/AdvReac Type Severity Reaction Status Date / Time No Known Allergies Allergy Verified 10/17/24 08:49 Exam Vital Signs Temp Pulse Resp BP Pulse Ox O2 Del Method 98.1 F 80 18 118/76 97 Room Air 10/17/24 16:27 10/17/24 16:27 10/17/24 16:27 10/17/24 16:27 10/17/24 16:27 10/17/24 16:27 Constitutional Constitutional: no acute distress Routine HEENT Exam Eye: Present PERRL (Anicteric sclera) Routine Abdominal Exam Abdominal: Present soft, normoactive bowel sounds and tenderness (Epigastric and right upper quadrant tenderness to deep palpation, no rebound tenderness or peritonitis at this time); Absent distended Results Results: Laboratory Laboratory results: results reviewed Results: Imaging Imaging narrative: CT scan, u/s and MRCP images reviewed, radiologist's interpretation noted Assessment & Plan Problem List (1) Biliary acute pancreatitis without necrosis or infection: Status: Acute Plan Keep NPO with IV fluids. Will plan for laparoscopic possible open cholecystectomy with cholangiogram when pancreatitis improve. Risks of the procedure that include but not limited to infection, bleeding, injury to bowel, liver, stomach, bile duct, retained stone, abdominal sepsis and or abdominal abscess, need for further procedure and or operation discussed with the patient and his . Benefits and alternatives explained to them, all their questions answered, they agreed and consented to proceed with the operation.
--- NOTE | 2024-10-17 20:37 | PD.IMCONS ---
HPI Data of Consult Requesting Physician: Robert Vasquez MD Primary Care Provider: Robert Bhakta MD Consult Narrative Reason for consult: Pain abdomen, elevated lipase, cholelithiasis History of present illness: 64-year-old male consulted by the ER physician for clinical presentation abdominal pain Workup included on gallbladder ultrasound cholelithiasis common bile duct [address] scan of the abdomen pelvis showed acute cholecystitis MRCP showed acute cholecystitis calculus and near blunt tapering of the distal common bile Patient also had an elevated lipase Total bilirubin 2.0 AST ALT 301 and 305 and alk phos of 155 Patient also drinks off-and-on but about 2 days ago drank 5 beers cc:: cc: Robert Vasquez MD Review of Systems Review of Systems Systems Reviewed: All systems reviewed, normal except as documented Past Medical History Surgical History OTHER SURGICAL HX: As in the history of present illness Hemorrhoidectomy Meds Home Medications and Allergies Home Medications ?Medication ?Instructions ?Recorded ?Confirmed ?Type amlodipine 5 mg-valsartan 320 mg 1 tab PO DAILY 02/09/23 07/21/24 History tablet fenofibrate 160 mg tablet 160 mg PO DAILY 02/09/23 07/21/24 History simvastatin 40 mg tablet 40 mg PO DAILY 02/09/23 07/21/24 History chlorthalidone 25 mg tablet 25 mg PO DAILY 07/19/24 07/21/24 History ciprofloxacin HCl 500 mg tablet 500 mg PO Q12H 07/19/24 07/21/24 History Allergies Allergy/AdvReac Type Severity Reaction Status Date / Time No Known Allergies Allergy Verified 10/17/24 08:49 Exam Vital Signs Temp Pulse Resp BP Pulse Ox O2 Del Method 96.8 F 99 19 116/84 95 Room Air 10/17/24 20:00 10/17/24 20:00 10/17/24 20:00 10/17/24 20:00 10/17/24 20:00 10/17/24 20:00 Routine Respiratory Exam Comments: Normal to auscultation Routine Abdominal Exam Comments: Midepigastric tenderness Results Labs 10/17/24 10:01 10/17/24 10:01 Labs: Short CBC 10/17/24 Range/Units 10:01 WBC 11.1 H (3.8-10.6) Thou/mm3 Hgb 13.8 (13.5-16.0) g/dL Hct 39.2 L (41.0-53.0) % Plt Count 284 (140-440) Thou/mm3 BMP 10/17/24 10:01 Sodium 135 L Potassium 3.1 L Chloride 101 Carbon Dioxide 26.6 BUN 17 Creatinine 1.3 Glucose 131 H Calcium 10.1 Liver Function 10/17/24 Range/Units 10:01 Total Bilirubin 2.0 H (0.3-1.2) mg/dL AST 301 H (0-34) U/L ALT 305 H (10-49) U/L Alkaline Phosphatase 155 H (46-116) U/L Albumin 4.8 (3.4-4.8) gm/dL Urine 10/17/24 Range/Units 09:22 Urine Color Yellow (Lt Yel-Yel) Urine Clarity Clear (Clear/Hazy) Urine pH 6.5 (5.0-7.0) Ur Specific [place] 1.021 (1.001-1.035) Urine Protein Negative (Neg - Trace) Urine Glucose (UA) Negative (Negative) Assessment and Plan Additional Assessment & Plan Additional Plan: # Pain abdomen epigastric # Pain abdomen right upper quadrant # Acute symptomatic cholecystitis due to cholelithiasis # Abnormal LFTs due to acute cholecystitis cholestasis Lente and pancreatitis and probably no choledocholithiasis Plan IV antibiotics IV fluids Pain control Once the amylase lipase comes down recommend laparoscopic versus open cholecystectomy and intraoperative cholangiogram thank you very much for the opportunity to participate in the care of this patient
[2024-10-17] MEDS: HEPARIN SOD INJ 5000 UNIT/ML VIAL SC (21:41)
[2024-10-18] VITALS (17 sets, daily range): BP systolic 89–126; BP diastolic 63–83; PULSE 71–85; RESP 14–98; TEMP 36.2–36.9; O2SAT 93–98
[2024-10-18] MEDS: RINGERS LACTATED 1000 ML 1,000 ML 200 ML IV ×3 (00:09→09:25)
[2024-10-18 05:33] LABS: Hemoglobin 12.1 g/dL (13.5-16.0); Immature Granulocytes % (Auto) 0 % (0-0); Immature Granulocytes Auto 0.02 Thou/mm3 (0.00-0.00); Monocytes # (Auto) 0.8 Thou/mm3 (0.0-0.8); Monocytes % (Auto) 11 % (0-12); Nucleated Red Blood Cell % 0 /100 WBC (0)
[2024-10-18] MEDS: PIPER/TAZO 3.375 GM PREMIX 3.375 GM/50 ML BAG IV ×3 (05:33→21:27)
[2024-10-18 05:38] LABS: Basophils # (Auto) 0.1 Thou/mm3 (0.0-0.2); Basophils % (Auto) 1 % (0-2.5); Eosinophils # (Auto) 0.4 Thou/mm3 (0.0-0.5); Eosinophils % (Auto) 5 % (0-10); Hematocrit 34.9 % (41.0-53.0); Lymphocytes # (Auto) 1.3 Thou/mm3 (1.0-4.8); Lymphocytes % (Auto) 17 % (10-50); Mean Corpuscular HGB Conc 34.7 g/dl (31.0-37.0); Mean Corpuscular Hemoglobin 33.8 pg (25.0-35.0); Mean Corpuscular Volume 98 fL (80-100); Neutrophils # (Auto) 4.8 Thou/mm3 (1.8-7.7); Neutrophils % (Auto) 66 % (37-80); Platelet Count 291 Thou/mm3 (140-440); RDW Standard Deviation 47.2 fL (35.1-43.9); Red Blood Count 3.58 Miln/mm3 (4.50-5.90); White Blood Count 7.4 Thou/mm3 (3.8-10.6)
[2024-10-18 05:41] LABS: Glucose Estimated Average 120 mg/dL (80-131); Hemoglobin A1C 5.8 % Hgb (4.8-6.0)
[2024-10-18 05:44] LABS: Prothrombin Time 11.3 Seconds (9.0-12.2)
--- NOTE | 2024-10-18 05:59 | EKG_ITS ---
[facility] Test Date: 2024-10-18 Pat Name: ALFREDO VEGA [facility] Gender[facility] Male Press Service Reader: MICHAEL : 1960 Requested By: Salazar Bee Order Number: [id number] Reading MD: Salazar Bee Measurements Intervals [place] Rate: 75 P: 35 SD: 160 QRS: 44 QRSD: 87 T: 64 QT: 397 QTc: 444 Interpretive Statements SINUS RHYTHM Compared to ECG 07/19/2024 11:07:27 T-wave abnormality no longer present /store/S0/[id number]
[2024-10-18 06:06] LABS: Alanine Aminotransferase 218 U/L (10-49); Albumin, Serum 3.7 gm/dL (3.4-4.8); Albumin/Globulin Ratio 1.5 (1.2-2.2); Alkaline Phosphatase 128 U/L (46-116); Amylase 460 U/L (30-118); Anion Gap 8 (7-16); Aspartate Amino Transferase 125 U/L (0-34); BUN/Creatinine Ratio 12 Ratio (12-20); Bilirubin,Direct 0.4 mg/dL (0.0-0.3); Bilirubin,Total 1.1 mg/dL (0.3-1.2); Blood Urea Nitrogen 13 mg/dL (9-23); Calcium 8.9 mg/dL (8.3-10.6); Calcium (Corrected) 9.1 mg/dL (8.5-10.1); Carbon Dioxide 25.6 mMol/L (20.0-31.0); Chloride 108 mMol/L (98-107); Creatinine (Component) 1.1 mg/dL (0.6-1.3); Estimated Creatinine Clearance 62.4 mL/min (>60); Globulin 2.5 gm/dL (2.3-3.5); Glucose 88 mg/dL (74-106); Lipase 382 U/L (12-53); Magnesium 1.6 mg/dL (1.6-2.6); Osmolality,Calculated 282 (275-295); Phosphorous 2.3 mg/dL (2.4-5.1); Potassium 3.4 mMol/L (3.4-5.1); Sodium 142 mMol/L (136-145); Thyroid Stimulating Hormone 1.03 uIU/mL (0.55-4.78); Total Protein 6.2 gm/dL (5.7-8.2); eGFR > 60 See Note
--- NOTE | 2024-10-18 08:44 | ESPR_ITS ---
Documentation for date of: 10/18/24 Subjective Subjective Interval history: Mr. Carmona is a 64-year-old male with past medical history of hypertension, hyperlipidemia and benign prostate hypertrophy who presented to [facility] emergency department from home on 10/17/2024 with a chief complaint of abdominal pain. Patient reported that the pain started overnight, describes the pain as burning in the middle of abdominal, nonradiating associated with some nausea, denies any vomiting. Patient reports that he had 6-7 beers over the weekend otherwise has been normal. Patient tried taking [id number] PPI for pain relief yesterday but it did not improve and he decided to come to the emergency department for further evaluation. Patient denies binge drinking otherwise, reports that he drinks occasionally, denies drinking daily. Patient otherwise has no complaints, follows up regularly outpatient with primary care physician, denies any chest pain, palpitations, syncope, dysuria or passing out. Patient did report that he did fall down over the weekend under the influence of alcohol. Patient otherwise has no current complaints. Patient was admitted by hospitalist team for gallstone pancreatitis. 10/18/24: Will be taking over patient's care today, appreciate the collaboration with the hospitalist team. Patient was seen and examined in [facility] today. His pain is a lot better and his lipase trended down to 382. He has been kept n.p.o. overnight. Patient will likely undergo cholecystectomy later today with general surgery. Will restart this patient oral intake gradually as tolerated once he completes his surgery. Appreciate general surgery and GI collaboration. Exam Vital Signs Temp Pulse Resp BP Pulse Ox O2 Del Method 97.7 F 78 16 126/82 97 Room Air 10/18/24 08:00 10/18/24 08:00 10/18/24 08:00 10/18/24 08:00 10/18/24 08:00 10/18/24 08:00 Narrative Exam Constitutional: Well nourished and in no acute distress Head: Normocephalic/Atraumatic Eyes: PERRL , no conjunctival injection , symmetrical lids. ENMT: Moist Mucous Membranes, No trauma or injury. Neck: Supple to palpation, No JVD CVS: RRR, S1 and S2 present, no murmurs, rubs or gallops . RESP: CTAB, no SOB, no rales, rhonchi or wheezing. No respiratory Distress GI: Large but soft with normal BS, Nontender/Nondistended. MSK: Full range of motion, No trauma or deformities or masses. Skin: Warm to touch, Dry. No rashes or lesions. No hematomas Neuro: fabrication welder II-XII grossly intact. Sensation grossly intact. Psych: (AAO) x3 . Appropriate mood and affect. Objective Labs 10/19/24 04:38 10/19/24 07:28 Labs: Laboratory Results - last 24 hr 10/17/24 10/17/24 10/17/24 09:22 10:01 16:16 WBC 11.1 H RBC 4.03 L Hgb 13.8 Hct 39.2 L MCV 97 MCH 34.2 MCHC 35.2 RDW Std Deviation 47.0 H Plt Count 284 Neut % (Auto) 72 Lymph % (Auto) 13 [place] % (Auto) 12 Eos % (Auto) 2 Baso % (Auto) 1 Neut # (Auto) 8.0 H Lymph # (Auto) 1.5 [place] # (Auto) 1.3 H Eos # (Auto) 0.2 Baso # (Auto) 0.1 Immature Gran # (Auto) 0.03 H Absolute Nucleated RBC 0.00 Immature Gran % 0 Nucleated RBC % 0 PT INR Sodium 135 L Potassium 3.1 L Chloride 101 Carbon Dioxide 26.6 Anion Gap 7 BUN 17 Creatinine 1.3 Estim Creat Clear Calc 52.8 L eGFR > 60 BUN/Creatinine Ratio [address] Glu mg/dL Hemoglobin A1c Calculated Osmolality 273 L Calcium 10.1 Corrected Calcium 10.1 Phosphorus Magnesium Total Bilirubin 2.0 H Direct Bilirubin AST 301 H ALT 305 H Alkaline Phosphatase 155 H Total Protein 7.9 Albumin 4.8 Globulin 3.1 Albumin/Globulin Ratio 1.5 Triglycerides 110 Cholesterol 145 LDL Cholesterol, Calc 67 HDL Cholesterol 56 Cholesterol/HDL Ratio 2.6 L Amylase Lipase 2400 H* TSH Ur Collection Type Clean Catch Urine Color Yellow Urine Clarity Clear Urine pH 6.5 Ur Specific [place] 1.021 Urine Protein Negative Urine Glucose (UA) Negative Urine Ketones Negative Urine Blood Negative Urine Nitrite Negative Urine Bilirubin Negative Urine Urobilinogen (Auto) Negative Ur Leukocyte Esterase Negative Urine RBC 6 H Urine WBC 3 Ur Squamous Epith Cells 0 Amorphous Crystals Present A Urine Bacteria Rare Ur Culture Indicated? Not Indicated 10/18/24 05:13 WBC 7.4 RBC 3.58 L Hgb 12.1 L Hct 34.9 L MCV 98 MCH 33.8 MCHC 34.7 RDW Std Deviation 47.2 H Plt Count 291 Neut % (Auto) 66 Lymph % (Auto) 17 [place] % (Auto) 11 Eos % (Auto) 5 Baso % (Auto) 1 Neut # (Auto) 4.8 Lymph # (Auto) 1.3 [place] # (Auto) 0.8 Eos # (Auto) 0.4 Baso # (Auto) 0.1 Immature Gran # (Auto) 0.02 H Absolute Nucleated RBC 0.00 Immature Gran % 0 Nucleated RBC % 0 PT 11.3 INR 1.0 Sodium 142 Potassium 3.4 Chloride 108 H Carbon Dioxide 25.6 Anion Gap 8 BUN 13 Creatinine 1.1 Estim Creat Clear Calc 62.4 eGFR > 60 BUN/Creatinine Ratio [address] Glu mg/dL 120 Hemoglobin A1c 5.8 Calculated Osmolality 282 Calcium 8.9 Corrected Calcium 9.1 Phosphorus 2.3 L Magnesium 1.6 Total Bilirubin 1.1 D Direct Bilirubin 0.4 H AST 125 H ALT 218 H Alkaline Phosphatase 128 H D Total Protein 6.2 Albumin 3.7 D Globulin 2.5 Albumin/Globulin Ratio 1.5 Triglycerides Cholesterol LDL Cholesterol, Calc HDL Cholesterol Cholesterol/HDL Ratio Amylase 460 H Lipase 382 H D TSH 1.03 Ur Collection Type Urine Color Urine Clarity Urine pH Ur Specific [place] Urine Protein Urine Glucose (UA) Urine Ketones Urine Blood Urine Nitrite Urine Bilirubin Urine Urobilinogen (Auto) Ur Leukocyte Esterase Urine RBC Urine WBC Ur Squamous Epith Cells Amorphous Crystals Urine Bacteria Ur Culture Indicated? Quality Measures Quality Measures none Advance care planning discussed with:: patient Assessment & Plan Assessment Current Active Medications: Generic Name Dose Route Start Last Admin Trade Name Freq PRN Reason Stop Dose Admin Acetaminophen 650 mg 10/17/24 15:53 Acetaminophen 325 Mg Tablet PO 11/16/24 15:52 Q6H PRN Pain (1-3) & Fever >100.4 Hydrocodone Bitart/Acetaminophen 1 tab 10/17/24 15:53 Hydrocodone/Apap 5/325 Tablet PO 10/22/24 15:52 Q4HR PRN PAIN SCALE 4-6 (Moderate Al Hydrox/Mg Hydrox/Simethicone 30 ml 10/17/24 15:53 Mg Hyd/Al Hyd/Martha (Maalox Reg) Susp 30 Ml Udc PO 11/16/24 15:52 Q6H PRN Indigestion Heparin Sodium (Porcine) 5,000 unit 10/17/24 22:00 10/17/24 21:41 Heparin Sod Inj 5000 Unit/Ml Vial SC 10/31/24 21:59 5,000 unit Q12H ROMERO Administration Lactated Ringer's 1,000 mls @ 200 mls/hr 10/17/24 17:00 10/18/24 04:43 Lactated Ringers IV 11/16/24 16:59 200 mls/hr .Q5H ROMERO Administration Piperacillin/Tazobactam/Dextrose 3.375 gm in 50 mls @ 12.5 mls/hr 10/17/24 22:00 10/18/24 05:33 Zosyn IV 10/24/24 21:59 12.5 mls/hr Q8HR ROMERO Administration Protocol Potassium Phosphate 15 mmol in 250 mls @ 62.5 mls/hr 10/18/24 08:16 Pot Phos 15 Mmol In Ns 250 Ml IV 10/18/24 12:15 X1 ONE Morphine Sulfate 2 mg 10/17/24 15:53 Morphine Sulf Inj 10 Mg/Ml Vial IVP 10/22/24 15:52 Q4H PRN PAIN SCALE 7-10 (Severe Ondansetron HCl 4 mg 10/17/24 15:53 Ondansetron Inj 2 Mg/Ml Inj 2 Ml IV 11/16/24 15:52 Q6H PRN NAUSEA OR VOMITING Protocol Pantoprazole Sodium 40 mg 10/18/24 09:00 Pantoprazole Inj 40 Mg Vial IVP 11/17/24 08:59 QDAY ROMERO Plan Mr. Carmona is a 64-year-old male with past medical history of hypertension, hyperlipidemia and benign prostate hypertrophy who presented to [facility] emergency department from home on 10/17/2024 with a chief complaint of abdominal pain. Patient admitted for further management of gallstone pancreatitis. #Acute pancreatitis #Acute calculus cholecystitis #Leukocytosis #Transaminitis, elevated alk phos, hyperbilirubinemia Etiology: Cholelithiasis most likely, possible causes of alcohol use, hyperlipidemia Patient has significant abdominal pain, lipase elevated 2400. No evidence of pancreatitis on CTAP. MRCP shows acute calculus cholecystitis, enlarged CBD with abrupt termination of distal common bile duct. Ultrasound shows cholelithiasis and fatty liver. Patient was given lidocaine p.o. 15 mL x 1, Maalox x 1, famotidine 20 mg p.o. x 1 in the emergency department. MRCP findings discussed with general surgeon, general surgery recommends strict n.p.o., will obtain cholangiogram during surgery. Transaminases trending down nicely Lipid panel is within normal limits Lipase improved today with two 3.8 to Plan: - IV Zosyn (10/17- - 1 L LR bolus followed by maintenance LR 200 cc/h - IV morphine as needed for pain - Strict n.p.o. per general surgery - General Surgery consulted, appreciate recommendations - Gastroenterology consulted, appreciate recommendations - Maalox as needed, daily IV Protonix #Electrolyte abnormality #Hypokalemia #Mild hyponatremia - Currently on IV fluids, will correct and replace electrolytes as needed #Hypertension Patient on hydrochlorothiazide, amlodipine and valsartan combination at home, pending med reconciliation Blood pressure soft, will hold antihypertensives #Hyperlipidemia Patient has transaminitis, will hold statins DVT prophylaxis: Heparin every 12 GI prophylaxis: IV Protonix Diet: Strict n.p.o. Lines: Peripheral IV Code status: Full code I discussed patient's care with attending physician, Dr Livia Boss PGY3 Attending Provider Attestation/Addendum Patient seen and examined with resident physician Dr. Boss. Note reviewed, agree with findings and recommendations. patient going for surgery. Patient admitted with gallstone pancreatitis.
[2024-10-18] MEDS: PANTOPRAZOLE INJ 40 MG VIAL IVP (09:08)
[2024-10-18] MEDS: POT PHOS 15 mMol in NS 250 ML 15 MMOL/250 ML BAG 62.5 MMOL IV (09:08)
--- NOTE | 2024-10-18 09:31 | PC.SS ---
Follow up note: Pt is on IV fluids, NPO, and on IV antibiotic. Pt is waiting for surgery with Dr. Kamara.
--- NOTE | 2024-10-18 11:00 | XR_ITS ---
Examination: Operative cholangiogram KUB x2 Exam date and time: October 18, 2024 11:40 AM INDICATIONS: Status post laparoscopic cholecystectomy FINDINGS: Contrast present outside the common hepatic duct below the liver Common hepatic duct 16 mm Prominent termination of the distal common bile duct No stones Minimal contrast in the duodenum IMPRESSION: No common hepatic or common bile duct stones noted
--- NOTE | 2024-10-18 12:09 | PD.SUROPNT ---
Date of Procedure 10/18/24 Pre Op Diagnosis Gallstone pancreatitis Post Op Diagnosis Cholelithiasis with cholecystitis Procedure Laparoscopic cholecystectomy with intraoperative cholangiogram Findings Distended gallbladder with gallbladder wall thickening, multiple stones and significant pericholecystic edema. Anterior surface of the liver was smooth without nodules or any lesions. No evidence of ascites. Dilated CBD without obvious stone Procedure Description Patient was brought into the operating room in supine position. After administration of general endotracheal anesthesia abdomen was prepped and draped in standard surgical manner. A Veress needle was inserted through the umbilicus and pneumoperitoneum was obtained up to 15 mmHg. The Veress needle was then removed, a 5 mm infraumbilical incision was made and the 5mm trocar was inserted. Laparoscopic camera was placed. Under direct visualization a laparoscopic camera a 10 mm trocar was placed in subxiphoid and two 5 mm trocars placed in right upper quadrant. The anterior surface of the liver was smooth without nodules or any lesions. No evidence of ascites. The gallbladder was identified and was noted to be moderately distended with gallbladder wall thickening and significant pericholecystic edema. It was retracted cephalad and laterally. Dissection started near the infundibulum of gallbladder where cystic duct and gallbladder junction clearly identified. The cystic duct was circumferentially dissected off the peritoneum and surrounding inflammatory tissue. The critical view of safety was clearly demonstrated. Cystic duct was noted to be dilated to approximately 1 cm in diameter. An Endo Clip placed near the cystic duct and gallbladder junction and a small ductotomy was performed. Cholangiogram catheter was placed through the ductotomy site and contrast was injected. Cholangiogram x-ray was obtained that revealed some leakage of the contrast, dilated CBD without obvious stone and minimal contrast in the duodenum. The cholangiogram catheter was removed and the cystic duct was divided between 2 endoclips proximally and one distally. The cystic artery was divided between 2 endoclips proximally and 1 distally. The gallbladder was then from the liver bed using electrocautery. The gallbladder was then placed inside an Endo Catch and removed from the abdomen utilizing subxiphoid trocar site. The area was copiously and thoroughly washed and irrigated, all the fluid was suctioned and the suction fluid returned clear. Hemostasis achieved using electrocautery. Endoclips noted be in place and intact without any bleeding or any leakage. Hemostasis was adequate and satisfactory. The subxiphoid trocar sites fascial defect was closed with 0 Vicryl using Endo Closure device. Instruments and trocars removed, pneumoperitoneum was evacuated and the incisions closed with 4-0 Monocryl in subcuticular fashion. Instrument needle and sponge counts were all reported to be correct X2. Patient tolerated the procedure well, was extubated, breathing spontaneously and without difficulty and was transferred to postanesthesia care in stable condition. Anesthesia GETA and local Pathology / specimen Other (Gallbladder and contents) Estimated Blood Loss 25 Condition Stable Disposition PACU Surgeon Ayesha Kamara MD Surgical Staff Operation Date: 10/18/24 11:15 Case Staff Anesthesiologist: Barney Maynard RNdirector commercial sales: Marion Metcalf
--- NOTE | 2024-10-18 12:26 | SUR.PHASEI ---
Arrived to recovery bay 7 via [facility]. Report received from Dr. Maynard and Danny VINCENT. Resting with eyes open. Responding to questions and commands appropriately. No c/o pain or discomfort. No s/o distress. Dr. Maynard at bedside observing due to low BP.
[2024-10-18] MEDS: ACETAMINOPHEN IVPB 1,000 MG/100 ML VIAL 250 MG IV (12:48)
--- NOTE | 2024-10-18 12:53 | PC.SS ---
SS met with patient regarding his d/c plan.? Pt is alert/oriented.? Pt was admitted for Gallstone Pancreatitis.? Pt confirmed demographic and contact information is correct on facesheet.? Pt resides with .? Pt ambulates independently without assistance or DME.? Pt is ok with all ADLs.? Patient?s pharmacy of choice is [facility].? Pt named his , Lisa Dos Santos medical decision maker if he is unable.? SS provided pt with verbal options for d/c to home or SNF.? Patient?s choice is to return home upon d/c.? Pt states he is not diabetic and is not on dialysis.? Pt states he followed up with PCP last month. D/C plan:? Return home Next of Kin:? Lias Carmona, , phone# [phone] PCP:? Dr. Robert Bhakta Address:? Correct on facesheet
--- NOTE | 2024-10-18 13:10 | SUR.PHASEI ---
Per Dr. Maynard patient may return to room on med/surg.
--- NOTE | 2024-10-18 13:12 | SUR.PHASEI ---
Resting with eyes open. No s/o distress or discomfort. States pain has decreased to 5 or 6 out of 10 after pain medicine given. Tolerated ice chips PO.
--- NOTE | 2024-10-18 13:20 | SUR.PHASEI ---
Transferred to room 355 via [facility]. Ambulated to bed with two person assist. Tolerated well. Jhon VINCENT at bedside. Made comfortable in bed. Call light within reach.
[2024-10-18] MEDS: RINGERS LACTATED 1000 ML 1,000 ML 75 ML IV (14:33)
--- NOTE | 2024-10-18 20:18 | ESPR_ITS ---
Documentation for date of: 10/18/24 Subjective Subjective Interval history: Patient evaluated Status postcholecystectomy with intraoperative cholangiogram showing most common bile duct stone Exam Vital Signs Temp Pulse Resp BP Pulse Ox O2 Del Method O2 Flow Rate 97.8 F 76 16 112/76 96 Room Air 1 10/18/24 15:24 10/18/24 16:00 10/18/24 15:24 10/18/24 15:24 10/18/24 15:24 10/18/24 15:24 10/18/24 12:40 Objective Labs 10/18/24 05:13 10/18/24 05:13 Labs: Laboratory Results - last 24 hr 10/18/24 05:13 WBC 7.4 RBC 3.58 L Hgb 12.1 L Hct 34.9 L MCV 98 MCH 33.8 MCHC 34.7 RDW Std Deviation 47.2 H Plt Count 291 Neut % (Auto) 66 Lymph % (Auto) 17 [place] % (Auto) 11 Eos % (Auto) 5 Baso % (Auto) 1 Neut # (Auto) 4.8 Lymph # (Auto) 1.3 [place] # (Auto) 0.8 Eos # (Auto) 0.4 Baso # (Auto) 0.1 Immature Gran # (Auto) 0.02 H Absolute Nucleated RBC 0.00 Immature Gran % 0 Nucleated RBC % 0 PT 11.3 INR 1.0 Sodium 142 Potassium 3.4 Chloride 108 H Carbon Dioxide 25.6 Anion Gap 8 BUN 13 Creatinine 1.1 Estim Creat Clear Calc 62.4 eGFR > 60 BUN/Creatinine Ratio [address] Glu mg/dL 120 Hemoglobin A1c 5.8 Calculated Osmolality 282 Calcium 8.9 Corrected Calcium 9.1 Phosphorus 2.3 L Magnesium 1.6 Total Bilirubin 1.1 D Direct Bilirubin 0.4 H AST 125 H ALT 218 H Alkaline Phosphatase 128 H D Total Protein 6.2 Albumin 3.7 D Globulin 2.5 Albumin/Globulin Ratio 1.5 Amylase 460 H Lipase 382 H D TSH 1.03 Impressions Impression: # Biliary pancreatitis # Cholelithiasis with acute cholecystitis status post cholecystectomy with a negative intraoperative cholangiogram Continue postoperative care Assessment & Plan A&P Narrative # Pain abdomen epigastric # Pain abdomen right upper quadrant # Acute symptomatic cholecystitis due to cholelithiasis # Abnormal LFTs due to acute cholecystitis cholestasis Lente and pancreatitis and probably no choledocholithiasis Plan IV antibiotics IV fluids Pain control Once the amylase lipase comes down recommend laparoscopic versus open cholecystectomy and intraoperative cholangiogram thank you very much for the opportunity to participate in the care of this patient Time Spent With Patient Time: Total time spent is greater than 50% in coordination of care (as documented) at patient's floor/unit and/or counseling patient:
[2024-10-18] MEDS: DOCUSATE SOD 100 MG CAPSULE PO (21:28)
[2024-10-19] VITALS: BP 111/73; PULSE 72; PULSE 77; RESP 16; TEMP 36.5; O2SAT 95
[2024-10-19 04:00] VITALS: BP 126/80; PULSE 74; PULSE 75; RESP 18; TEMP 36.2; O2SAT 98
[2024-10-19] MEDS: RINGERS LACTATED 1000 ML 1,000 ML 75 ML IV (04:22)
[2024-10-19] MEDS: PIPER/TAZO 3.375 GM PREMIX 3.375 GM/50 ML BAG IV (05:14)
[2024-10-19 06:22] LABS: Basophils % (Auto) 0 % (0-2.5); Eosinophils % (Auto) 0 % (0-10); Hematocrit 35.9 % (41.0-53.0); Hemoglobin 12.7 g/dL (13.5-16.0); Immature Granulocytes % (Auto) 0 % (0-0); Immature Granulocytes Auto 0.02 Thou/mm3 (0.00-0.00); Lymphocytes % (Auto) 11 % (10-50); Mean Corpuscular HGB Conc 35.4 g/dl (31.0-37.0); Mean Corpuscular Hemoglobin 34.3 pg (25.0-35.0); Mean Corpuscular Volume 97 fL (80-100); Monocytes # (Auto) 0.8 Thou/mm3 (0.0-0.8); Monocytes % (Auto) 8 % (0-12); Neutrophils # (Auto) 7.8 Thou/mm3 (1.8-7.7); Neutrophils % (Auto) 81 % (37-80); Nucleated Red Blood Cell % 0 /100 WBC (0); Platelet Count 229 Thou/mm3 (140-440); RDW Standard Deviation 47.5 fL (35.1-43.9); White Blood Count 9.6 Thou/mm3 (3.8-10.6)
[2024-10-19 08:00] VITALS: BP 119/85; PULSE 74; PULSE 91; RESP 16; TEMP 36.6; O2SAT 97
[2024-10-19] MEDS: PANTOPRAZOLE INJ 40 MG VIAL IVP (08:37)
[2024-10-19] MEDS: DOCUSATE SOD 100 MG CAPSULE PO (08:37)
[2024-10-19 09:18] LABS: Alanine Aminotransferase 207 U/L (10-49); Albumin, Serum 4.3 gm/dL (3.4-4.8); Albumin/Globulin Ratio 1.5 (1.2-2.2); Alkaline Phosphatase 133 U/L (46-116); Anion Gap 11 (7-16); Aspartate Amino Transferase 109 U/L (0-34); BUN/Creatinine Ratio 10 Ratio (12-20); Bilirubin,Total 0.6 mg/dL (0.3-1.2); Blood Urea Nitrogen 12 mg/dL (9-23); Calcium 9.8 mg/dL (8.3-10.6); Calcium (Corrected) 9.8 mg/dL (8.5-10.1); Carbon Dioxide 21.7 mMol/L (20.0-31.0); Chloride 109 mMol/L (98-107); Creatinine (Component) 1.2 mg/dL (0.6-1.3); Estimated Creatinine Clearance 57.2 mL/min (>60); Globulin 2.9 gm/dL (2.3-3.5); Glucose 104 mg/dL (74-106); Magnesium 1.8 mg/dL (1.6-2.6); Osmolality,Calculated 282 (275-295); Phosphorous 3.3 mg/dL (2.4-5.1); Potassium 3.6 mMol/L (3.4-5.1); Sodium 142 mMol/L (136-145); Total Protein 7.2 gm/dL (5.7-8.2); eGFR > 60 See Note
[2024-10-19 12:00] VITALS: BP 127/78; PULSE 76; PULSE 92; RESP 18; TEMP 36.7; O2SAT 99
--- NOTE | 2024-10-19 13:56 | PD.SURPROG ---
Documentation for date of: 10/19/24 Subjective Subjective Narrative: Patient is seen and examined. He is sitting in the chair comfortably. His pain is improving. He is tolerating diet well Exam Vital Signs Temp Pulse Resp BP Pulse Ox O2 Del Method O2 Flow Rate 98.1 F 76 18 127/78 99 Room Air 1 10/19/24 12:00 10/19/24 12:00 10/19/24 12:10/19/24 12:10/19/24 12:10/19/24 12:10/18/24 12:40 Constitutional Constitutional: no acute distress Routine Abdominal Exam Comments: Abdomen is soft and nondistended. Incisions are clean, dry and intact. He has minimal epigastric incisional tenderness Assessment & Plan Assessment Additional comments: Postop day #1 status post laparoscopic cholecystectomy with cholangiogram. Liver function tests are improving Plan May discharge home. Procedures Procedures Laparoscopic cholecystectomy with intraoperative cholangiogram
--- NOTE | 2024-10-19 14:13 | ESDS_ITS ---
Planned Discharge Date 10/19/24 DS: Providers Provider Date of admission: 10/17/24 15:53 Primary care physician: Robert Bhakta MD Admitting Provider: Robert Vasquez MD Attending Provider on Admission: Robert Vasquez MD Consults: 10/17/24 16:02 Consult to Gastroenterology Stat Comment: Gallstone Pancreatitis Consulting Provider: Fabian Alcantar 10/17/24 16:03 Consult to General Surgery Stat Comment: Gallstone Pancreatitis Consulting Provider: Ayesha Kamara Attending Provider on DC: Robert Bhakta MD Discharging Provider: Chadwick Macario MD DS: Diagnosis Problem List Completed Was Problem List Reviewed/Reconciled?: Yes Hospital Course Hospital Course Hospital course: Mr. Carmona is a 64-year-old male with past medical history of hypertension, hyperlipidemia and benign prostate hypertrophy who presented to [facility] emergency department from home on 10/17/2024 with a chief complaint of abdominal pain, admitted for gallstone pacnreatitis confirmd by imaging. GI and general surgery were consulted to aid in management. Patient given antibiotics, IVF, and morphine. Patient received laparoscopic cholecystectomy with intraoperative cholangiogram, procedure well tolerated. Patient having bowel movements, tolerating oral diet well, ambulating without assistance. Patient clear for discharge from GI and surgery perspectives. Patient stable and clear for discharge. Discharge plan: Follow up with Dr. Bhakta in 1-2 weeks May shower in 24 hours. Avoid lifting, straining, pulling or pushing for 4 weeks. May take over the counter laxatives if no bowel movement in 2 days. Follow up with Dr. Kamara in 2 weeks, call [phone] for an appointment. Continue low-fat diet for 1 week then advance diet as tolerated. Diagnosis: #Acute pancreatitis #Acute calculus cholecystitis #Leukocytosis #Transaminitis, elevated alk phos, hyperbilirubinemia #Electrolyte abnormality #Hypokalemia #Mild hyponatremia #Hypertension #Hyperlipidemia Plan of care discussed with attending Dr. Bhakta. Chadwick Macario MD PGY-1 Status at Discharge Cognitive/behavioral status at discharge: stable Functional status at discharge: independent ambulation Overall status at discharge: patient is progressing back to baseline Time Spent with Patient Time attestation: Total time spent providing and/or coordinating discharge services: Time spent: Greater than 30 minutes Exam Vital Signs Temp Pulse Resp BP Pulse Ox O2 Del Method O2 Flow Rate 98.1 F 76 18 127/78 99 Room Air 1 10/19/24 12:00 10/19/24 12:10/19/24 12:10/19/24 12:10/19/24 12:10/19/24 12:10/18/24 12:40 Narrative Exam Constitutional: Well nourished and in no acute distress Head: Normocephalic/Atraumatic Eyes: PERRL , no conjunctival injection , symmetrical lids. ENMT: Moist Mucous Membranes, No trauma or injury. Neck: Supple to palpation, No JVD CVS: RRR, S1 and S2 present, no murmurs, rubs or gallops . RESP: CTAB, no SOB, no rales, rhonchi or wheezing. No respiratory Distress GI: Large but soft with normal BS, Nontender/Nondistended. MSK: Full range of motion, No trauma or deformities or masses. Skin: Warm to touch, Dry. No rashes or lesions. No hematomas. Recent laprasopic incisions, clean and dry. Neuro: web services professional II-XII grossly intact. Sensation grossly intact. Psych: (AAO) x3 . Appropriate mood and affect. Discharge Plan Plan Patient Disposition: HOME (Self Care) Patient condition on transfer: Stable Prescriptions/Referrals Prescriptions/Med Rec: New hydrocodone-acetaminophen 5-325 mg tablet 1 tab PO Q6H MDD 4 PRN (Reason: pain (scale score 7-10)) Qty: 10 0RF Continued simvastatin 40 mg tablet 40 mg PO DAILY Patient Comments: TAKE 1 TABLET BY MOUTH EVERY DAY amlodipine-valsartan 5-320 mg tablet 1 tab PO DAILY Patient Comments: TAKE 1 TABLET BY MOUTH EVERY DAY docusate sodium 100 mg capsule 100 mg PO BID doxazosin 4 mg tablet 4 mg PO 1XD Discontinued fenofibrate 160 mg tablet 160 mg PO DAILY Patient Comments: TAKE 1 TABLET BY MOUTH EVERY DAY AT NIGHT chlorthalidone 25 mg tablet 25 mg PO DAILY Referrals: Ayesha Kamara MD [Physician] - Robert Bhakta MD [Primary Care Provider] - Patient/Caregiver Discharge Instructions Discharge Activity: activity as tolerated Education Materials: Cholecystectomy Laparoscopic Dc, Preventing Surgical Site Infections Print Language: Montenegrin Activity Restrictions/Additional Instructions: Follow up with me in 1-2 weeks May shower in 24 hours. Avoid lifting, straining, pulling or pushing for 4 weeks. May take over the counter laxatives if no bowel movement in 2 days. Follow up with Dr. Kamara in 2 weeks, call [phone] for an appointment. Continue low-fat diet for 1 week then advance diet as tolerated. Stand Alone Forms: [employer] Info., Patient Portal Info Letter Discharge Order Discharge Orders: Discharge (Routine); Ordered 10/19/24 Ordered By: Robert Bhakta Quality Discharge Quality Measures VTE prophylaxis MD Attestestation MD Attestation Patient currently seen and examined with resident physician Dr. Macario. Note reviewed, agree with findings and recommendations. Patient admitted with gallstone pancreatitis. Status post a lap cholecystectomy. Spoke to . He is going to be discharged today. Follow-up with myself and Dr. Kamara in 1 to 2 weeks.
== END 2024-10-19 13:51 | disposition home or self-care (01) | DRG 417 ==
LOC: SERX 15:09 → SERHOLD 16:07 → S3NX 18:06
PROVIDERS: Nurse Practitioner Primary Care; Specialist; Surgery; Admitting Provider Student in an Organized Health Care Education/Training Program; Emergency Provider Emergency Medicine; PCP Internal Medicine; Visit Provider Student in an Organized Health Care Education/Training Program
PROC: 0FT44ZZ Resection of Gallbladder, Percutaneous Endoscopic Approach (ICD-10-PCS; CPT 47562; principal; 2024-10-18 11:00)
DX: K80.00 Calculus of gallbladder with acute cholecystitis without obstruction (principal); K85.10 Biliary acute pancreatitis without necrosis or infection; E87.1 Hypo-osmolality and hyponatremia; I10 Essential (primary) hypertension; E78.5 Hyperlipidemia, unspecified; N40.0 Benign prostatic hyperplasia without lower urinary tract symptoms; K76.0 Fatty (change of) liver, not elsewhere classified; E87.6 Hypokalemia; Z87.891 Personal history of nicotine dependence; E78.00 Pure hypercholesterolemia, unspecified; K82.8 Other specified diseases of gallbladder
CPT/HCPCS: 36415; 74176; 74300; 76705; 80053; 80061; 80076; 81001; 82150; 83036; 83690; 83735; 84100; 84443; 85025; 85610; 93005; 94762; 99285; A4217; A4649; J0131; J0694; J1100; J1644; J2371; J2470; J2543; J2704; J3010; J3490; J7120; J7999; S8037; 74181; A9270

== ENCOUNTER → 2024-12-15 | Outpatient (CLI) | payer OTHER, SELFPAY ==
[2024-12-15 10:51] LABS: Alanine Aminotransferase 26 U/L (10-49); Albumin, Serum 4.4 gm/dL (3.4-4.8); Albumin/Globulin Ratio 1.5 (1.2-2.2); Alkaline Phosphatase 56 U/L (46-116); Anion Gap 11 (7-16); Aspartate Amino Transferase 22 U/L (0-34); BUN/Creatinine Ratio 10 Ratio (12-20); Bilirubin,Total 0.6 mg/dL (0.3-1.2); Blood Urea Nitrogen 11 mg/dL (9-23); Calcium 9.9 mg/dL (8.3-10.6); Calcium (Corrected) 9.9 mg/dL (8.5-10.1); Carbon Dioxide 26.7 mMol/L (20.0-31.0); Cardiac Risk Estimate 4.1 RATIO (4.0-6.7); Chloride 100 mMol/L (98-107); Cholesterol 162 mg/dL (132-200); Creatinine (Component) 1.1 mg/dL (0.6-1.3); Glucose 103 mg/dL (74-106); HDL Cholesterol 40 mg/dL (40-60); LDL Cholesterol,Calculated 62 mg/dL (0-130); Osmolality,Calculated 275 (275-295); Sodium 138 mMol/L (136-145); Total Protein 7.4 gm/dL (5.7-8.2); Triglycerides 302 mg/dL (30-150); eGFR > 60 See Note
== END | disposition home or self-care (01) ==
LOC: COPL 09:53
PROVIDERS: PCP Internal Medicine; Referring Provider Internal Medicine; Visit Provider Internal Medicine
DX: I10 Essential (primary) hypertension (principal); E78.5 Hyperlipidemia, unspecified
CPT/HCPCS: 36415; 80053; 80061